=== PATIENT | male | born 1945 | race Caucasian/White ===

== ENCOUNTER 2021-03-15 03:50 | Emergency (ER) | payer OTHER ==
[2021-03-15] MEDS: Ondansetron 4 MG Tab.DIS PO ONE (04:20)
[2021-03-15] MEDS: HYDROmorphone 4 MG/ML Syringe SUBCUT ONE (04:20)
[2021-03-15 05:13] VITALS: BP 108/62; PULSE 81
[2021-03-15] MEDS ORDERED: Acetaminophen/HYDROcodone 325-5 MG Tab ONE (06:00)
--- NOTE | 2021-03-15 09:41 | CT ---
Date of Service: 03/15/21 Clinical Data: Right abdominal / flank pain. UNENHANCED ABDOMEN AND PELVIC CT: Multislice acquisition through the abdomen and pelvis without IV or oral contrast was performed. No priors. Motion artifact does degrade study quality. There are moderate-sized bilateral pleural effusion, right greater than left. There are atelectatic changes in the dependent portion of both lower lungs. The heart size is normal. No pericardial effusion. The unenhanced liver appears normal. There is a large gallstone noted within the gallbladder. No pericholecystic fluid. The spleen appears normal. The pancreas appears normal. No pancreatic duct dilatation. The right and left adrenals appear normal. No nephrocalcinosis or nephrolithiasis. There are benign appearing cysts in both kidneys. No hydronephrosis or hydroureter. The bladder is partially fluid filled. There is mild diffuse bladder wall thickening. This is probably related to nondistention. Cystitis should be considered. The prostate is significantly enlarged. No evidence of appendicitis. There are surgical changes involving the cecum most likely related to prior appendectomy. There is an abnormal segment of the jejunum noted within the left abdomen. There is marked renal thickening with adjacent fat stranding. It measures approximately 17 cm in length. Enteritis is suspected . An infiltrating process should at least be considered. There are scattered air-fluid levels throughout the small bowel. There is diverticulosis of the descending and sigmoid colon. No evidence of diverticulitis. There is a small amount if free fluid noted within the pelvis. No free air. No adenopathy. No aortic aneurysm. No other significant findings. IMPRESSION: Abnormal exam. Multiple findings as discussed above. [id number] [facility]
--- NOTE | 2021-03-15 12:44 | EDM.PDOC ---
ED HPI GENERAL MEDICAL PROBLEM - General Chief Complaint: Abdominal Pain Stated Complaint: GALLBLADDER PAIN Time Seen by Provider: 03/15/21 04:00 - History of Present Illness INITIAL COMMENTS - FREE TEXT/NARRATIVE: Patient is here with his son complaining of abdominal pain pointing to the umbilical area and stating that it radiates around the right side. He states it started about 10 PM which is about 6 hours ago. He has had just a slight amount of nausea, but has not vomited. Patient states the pain is 7 or 8/10, and he is uncomfortable from it. He tells me he has had multiple episodes like this in the past, and it was felt to be his gallbladder which has a large stone in it. The patient has been trying to have his gallbladder removed but it has been put off because of cardiac issues and multiple stents being needed within the last year. Patient denies running a fever, he has no problems with coughing shortness of breath diarrhea or constipation. - Related Data Allergies Allergy/AdvReac Type Severity Reaction Status Date / Time No Known Allergies Allergy Verified 03/15/21 05:08 Past Medical History Cardiovascular History: Reports: Heart Failure, Stents Gastrointestinal History: Reports: Cholelithiasis - Infectious Disease History Infectious Disease History: Reports: Chicken Pox - Past Surgical History Cardiovascular Surgical History: Reports: Coronary Artery Stent Social & Family History - Tobacco Use Tobacco Use Status *Q: Never Tobacco User ED ROS GENERAL - Review of Systems Review Of Systems: Comprehensive ROS is negative, except as noted in HPI. GI/Abdominal: Reports: Other (Abd and left flank pain.) ED EXAM, GI/ABD - Physical Exam Exam: See Below Text/Narrative:: Patient is awake and alert no respiratory distress. He is slightly uncomfortable from the pain. Oral mucous membranes are slightly dry, neck is supple, lungs are clear with slightly reduced air exchange throughout the lung alarcon. Cardiac heart sounds distinct S1-S2 present regular rate no murmurs abdomen is soft there is tenderness in the umbilical area radiating up through the upper right quadrant and into the flank area. Bowel sounds are present but slightly hypoactive. Skin is warm and dry. Course - Vital Signs Last Recorded V/S: Last Vital Signs Temp 98.6 F 03/15/21 03:55 Pulse 81 03/15/21 03:55 Resp 18 03/15/21 03:55 BP 108/62 03/15/21 03:55 Pulse Ox 94 L 08/11/21 03:55 - Orders/Labs/Meds Orders: Active Orders 24 hr Category Date Time Status Abdomen Pelvis wo Cont [CT] Stat Exams 03/15/21 04:14 Taken Labs: Laboratory Tests 03/15/21 03/15/21 03/15/21 Range/Units 04:40 05:00 05:00 WBC 7.5 (4.0-11.0) K/uL RBC 3.78 L (4.50-6.50) M/uL Hgb 11.3 L (13.0-18.0) g/dL Hct 34.2 L (40.0-54.0) % MCV 91 (76-96) fL MCH 29.9 (27.0-32.0) pg MCHC 33.0 (31.0-35.0) g/dL RDW 14.1 (11.0-16.0) % Plt Count 179 (150-400) K/uL MPV 11.2 H (6.0-10.0) fL Neut % (Auto) 83.2 H (45.0-70.0) % Lymph % (Auto) 7.8 L (20.0-40.0) % Isabela % (Auto) 8.0 (3.0-10.0) % Eos % (Auto) 0.7 L (1.0-5.0) % Baso % (Auto) 0.3 (0.0-0.5) % Neut # (Auto) 6.21 (2.00-7.50) K/uL Lymph # (Auto) 0.58 L (1.50-4.00) K/uL Isabela # (Auto) 0.60 (0.20-0.80) K/uL Eos # (Auto) 0.05 (0.04-0.40) K/uL Baso # (Auto) 0.02 (0.02-0.10) K/uL PT (9.0-11.5) sec INR (1.0-3.5) Sodium 140 (136-145) mmol/L Potassium 3.6 (3.5-5.1) mmol/L Chloride 108 H (98-107) mmol/L Carbon Dioxide 27.7 (21.0-32.0) mmol/L Anion Gap 7.9 (5.0-15.0) mmol/L BUN 21 (8-26) mg/dL Creatinine 1.40 H (0.70-1.30) mg/dL Est Cr Clr Drug Dosing 41.83 mL/min Estimated GFR (MDRD) 49 L (>60) MLS/MIN BUN/Creatinine Ratio 15.0 (6-25) Glucose 111 H (74-100) mg/dL Calcium 8.0 L (8.5-10.1) mg/dL Total Bilirubin 1.1 H (0.0-1.0) mg/dL AST 49 H (15-37) U/L ALT 47 (12-78) U/L Alkaline Phosphatase 265 H (46-116) U/L Total Protein 6.3 L (6.4-8.2) g/dL Albumin 2.8 L (3.4-5.0) g/dL Globulin 3.5 (2.2-4.2) g/dL Albumin/Globulin Ratio 0.8 (0.8-2.0) Urine Color Yellow Urine Appearance Clear (CLEAR) Urine pH 5.5 (5.0-8.0) Ur Specific [place] 1.025 (1.003-1.030) Urine Protein 30 H (NEGATIVE) mg/dL Urine Glucose (UA) Negative (NEGATIVE) mg/dL Urine Ketones 15 H (NEGATIVE) mg/dL Urine Occult Blood Moderate H (NEGATIVE) Urine Nitrite Negative (NEGATIVE) Urine Bilirubin Small H (NEGATIVE) Urine Urobilinogen 4.0 H (0.2-1.0) E.U./dL Ur Leukocyte Esterase Negative (NEGATIVE) U Hyaline Cast (Auto) Few /HPF Urine RBC 10-20 H /HPF Urine Bacteria Moderate H /HPF Urine Mucus Few /HPF 03/15/21 Range/Units 05:00 WBC (4.0-11.0) K/uL RBC (4.50-6.50) M/uL Hgb (13.0-18.0) g/dL Hct (40.0-54.0) % MCV (76-96) fL MCH (27.0-32.0) pg MCHC (31.0-35.0) g/dL RDW (11.0-16.0) % Plt Count (150-400) K/uL MPV (6.0-10.0) fL Neut % (Auto) (45.0-70.0) % Lymph % (Auto) (20.0-40.0) % Isabela % (Auto) (3.0-10.0) % Eos % (Auto) (1.0-5.0) % Baso % (Auto) (0.0-0.5) % Neut # (Auto) (2.00-7.50) K/uL Lymph # (Auto) (1.50-4.00) K/uL Isabela # (Auto) (0.20-0.80) K/uL Eos # (Auto) (0.04-0.40) K/uL Baso # (Auto) (0.02-0.10) K/uL PT 26.7 H (9.0-11.5) sec INR 2.8 (1.0-3.5) Sodium (136-145) mmol/L Potassium (3.5-5.1) mmol/L Chloride (98-107) mmol/L Carbon Dioxide (21.0-32.0) mmol/L Anion Gap (5.0-15.0) mmol/L BUN (8-26) mg/dL Creatinine (0.70-1.30) mg/dL Est Cr Clr Drug Dosing mL/min Estimated GFR (MDRD) (>60) MLS/MIN BUN/Creatinine Ratio (6-25) Glucose (74-100) mg/dL Calcium (8.5-10.1) mg/dL Total Bilirubin (0.0-1.0) mg/dL AST (15-37) U/L ALT (12-78) U/L Alkaline Phosphatase (46-116) U/L Total Protein (6.4-8.2) g/dL Albumin (3.4-5.0) g/dL Globulin (2.2-4.2) g/dL Albumin/Globulin Ratio (0.8-2.0) Urine Color Urine Appearance (CLEAR) Urine pH (5.0-8.0) Ur Specific [place] (1.003-1.030) Urine Protein (NEGATIVE) mg/dL Urine Glucose (UA) (NEGATIVE) mg/dL Urine Ketones (NEGATIVE) mg/dL Urine Occult Blood (NEGATIVE) Urine Nitrite (NEGATIVE) Urine Bilirubin (NEGATIVE) Urine Urobilinogen (0.2-1.0) E.U./dL Ur Leukocyte Esterase (NEGATIVE) U Hyaline Cast (Auto) /HPF Urine RBC /HPF Urine Bacteria /HPF Urine Mucus /HPF Meds: Medications Discontinued Medications Generic Name Dose Route Start Last Admin Trade Name Gwen PRN Reason Stop Dose Admin Hydrocodone Bitart/Acetaminophen 10 tab 03/15/21 06:00 Acetaminophen/Hydrocodone 325-5 Mg Tab .ROUTE 03/15/21 06:01 .STK-MED ONE Hydromorphone HCl 1 mg 03/15/21 04:15 03/15/21 04:20 Hydromorphone 4 Mg/Ml Syringe SUBCUT 03/15/21 04:16 1 mg ONETIME ONE Administration Ondansetron HCl 4 mg 03/15/21 04:16 03/15/21 04:20 Ondansetron 4 Mg Tab.Dis PO 03/15/21 04:17 4 mg ONETIME ONE Administration - Re-Assessments/Exams Free Text/Narrative Re-Assessment/Exam: 03/15/21 12:42 Patient was given Dilaudid 1 mg subcu, and Zofran 4 mg sublingual. This did resolve his pain and he is not having any problems with nausea. Labs show only subtle abnormal findings mostly with his urine. CT of the abdomen shows possible enteritis in the jejunal area treatment plan the patient will be discharged with a few pain pills to take as needed. He is to utilize a soft diet and refrain from any alcohol use at this time. When he is back home in a couple of days he is to follow-up with his primary care provider for further treatment measures and possible work-up. The patient denies any history of enteritis I did talk with the patient's midmorning and he was doing well he had no pain and he agrees to the treatment plan. Departure - Departure Time of Disposition: 06:00 Disposition: Home, Self-Care 01 Condition: Good Clinical Impression: Enteritis - Discharge Information *PRESCRIPTION DRUG MONITORING PROGRAM REVIEWED*: Not Applicable *COPY OF PRESCRIPTION DRUG MONITORING REPORT IN PATIENT HORACIO: Not Applicable Instructions: Cholelithiasis Referrals: PCP,None [Primary Care Provider] - Forms: ED Department Discharge Additional Instructions: Pain meds as directed Sepsis Event Note (ED) - Evaluation Sepsis Screening Result: No Definite Risk - Focused Exam Vital Signs: Vital Signs Temp Pulse Resp BP Pulse Ox 03/15/21 03:55 98.6 F 81 18 108/62 94 L - My Orders Last 24 Hours: My Active Orders 03/15/21 04:14 Abdomen Pelvis wo Cont [CT] Stat - Assessment/Plan Last 24 Hours: My Active Orders 03/15/21 04:14 Abdomen Pelvis wo Cont [CT] Stat
== END 2021-03-15 06:05 | disposition home or self-care (01) ==
LOC: LB.ED 03:50
DX: K52.9 Noninfective gastroenteritis and colitis, unspecified (principal); I50.9 Heart failure, unspecified; Z95.5 Presence of coronary angioplasty implant and graft
CPT/HCPCS: 36415; 74176; 80053; 81001; 85025; 85610; 96372; 99284-25; A9270-GY; J1170